=== PATIENT | male | born 1965 | race Caucasian/White ===

== ENCOUNTER 2017-03-11 03:44 | Emergency (ER) | payer OTHER ==
[~2017-03-11] VITALS: Ht 172.7 cm; Wt 86.5 kg
[~2017-03-11 03:44] MED LIST: AMLODIPINE-BEN1 EAC5 PO; CEPHALEXIN500 MG PO; CIPRO500 M1 PO; CIPRO500 MG PO; CLINDAMYCIN HC300 MG PO; FLAGYL500 MG PO; HYDROCODON-ACE1 EAC7 PO; KEFLEX500 MG PO; OMEPRAZOLE40 M1 PO; PRILOSEC40 MG PO; RAPAFLO4 MG PO; TYLENOL WITH C1 EACH PO; VICODIN 5-3001 EACH PO
[2017-03-11 04:50] LABS: BASOPHIL (%) 0.5 % (0-1); BASOPHIL COUNT 0.1 K/uL (0-0.1); EOSINOPHIL (%) 2.2 % (0-5); EOSINOPHIL COUNT 0.3 K/uL (0-0.3); HEMATOCRIT 42.4 % (38.0-50.0); HEMOGLOBIN 14.1 G/DL (12.5-16.6); IMMATURE GRANULOCYTE (%) 0.8 % (0.0-0.7); LYMPHOCYTE (%) 16.3 % (15-42); LYMPHOCYTE COUNT 2.1 K/uL (1.0-2.8); MCH 29.3 PG (29.0-34.0); MCHC 33.3 G/DL (30.0-36.0); MONOCYTE (%) 7.9 % (3-12); NEUTROPHIL (%) 72.3 % (45-76); NEUTROPHIL COUNT 9.1 K/uL (1.8-6.4); PLATELET COUNT 205 K/uL (156-360); RBC DIS.WIDTH-CV 13.3 % (11.8-14.6); RBC DIS.WIDTH-SD 43.3 % (39-53); RED BLOOD COUNT 4.82 M/uL (4.00-5.50); WHITE BLOOD COUNT 12.6 K/uL (4.1-10.2)
[2017-03-11 05:00] LABS: ALBUMIN 4.1 g/dL (3.2-4.8); CHLORIDE 107 mEq/L (99-109); POTASSIUM 4.2 mEq/L (3.7-5.4); SODIUM 141 mEq/L (136-147)
[2017-03-11 05:01] LABS: MAGNESIUM 2.1 mg/dL (1.3-2.7)
[2017-03-11 05:03] LABS: GLUCOSE 105 mg/dL (70-99); TOTAL PROTEIN 7.1 g/dL (6.4-8.3)
[2017-03-11 05:05] LABS: TOTAL BILIRUBIN 0.4 mg/dL (0.0-1.0)
[2017-03-11 05:06] LABS: ALKALINE PHOSPHATASE 84 IU/L (3-129)
[2017-03-11 05:07] LABS: CREATININE 0.7 mg/dL (0.6-1.3); GFR ESTIMATE (CALCULATED) > 59 mL/min/ (58.99-99999)
[2017-03-11 05:08] LABS: AST (GOT) 17 IU/L (2-34); UREA NITROGEN (BUN) 13 mg/dL (9-23)
[2017-03-11 05:09] LABS: ALT (GPT) 22 IU/L (3-49)
[2017-03-11 05:11] LABS: TROP-I INTERPRETATION NEGATIVE; TROPONIN-I 0.01 ng/mL (0.0-0.30)
[2017-03-11 07:47] LABS: TROP-I INTERPRETATION NEGATIVE; TROPONIN-I 0.01 ng/mL (0.0-0.30)
[2017-03-11 08:16] VITALS: BP 145/91
== END 2017-03-11 08:22 | disposition home or self-care (01) ==
LOC: EME 03:44
PROVIDERS: Emergency Medicine
DX: R07.89 Other chest pain (principal); I10 Essential (primary) hypertension; K21.9 Gastro-esophageal reflux disease without esophagitis; Z87.891 Personal history of nicotine dependence
CPT/HCPCS: 71046; 71275; 80053; 83735; 84484; 85025; 85379; 93005; 99281; 99285; J1885; J7030